=== PATIENT | female | born 1935 ===

== ENCOUNTER 2016-11-05 11:56 | Inpatient (IN) | payer MEDICARE ==
[2016-11-05 11:56] VITALS: BMI 20.5
[2016-11-05] MEDS ORDERED: Acetaminophen 650mg/20.3ml solution UD PO STA (12:16)
--- NOTE | 2016-11-05 12:28 | C.PDOC ---
History Of Present Illness Patient is a 80 y/o female who presents to the ED with a complaint of a headache that began yesterday. Patient states she also has HTN in which she took medication for today; BP 176/80 in house. Denies any other complaints at the time. Time Seen by Provider: 11/05/16 12:10 Chief Complaint (Nursing): High Blood Pressure History Per: Patient History/Exam Limitations: no limitations Onset/Duration Of Symptoms: Days (symptoms began yesterday. ) Current Symptoms Are (Timing): Still Present Associated Symptoms: Headache Recent travel outside of the [place]: No Past Medical History Reviewed: Historical Data, Nursing Documentation, Vital Signs Vital Signs: Last Vital Signs Temp 97.6 F 11/05/16 17:30 Pulse 72 11/05/16 17:30 Resp 20 11/05/16 17:30 BP 154/72 H 11/05/16 17:30 Pulse Ox 97 11/05/16 18:20 - Medical History PMH: HTN, Hypercholesterolemia, Peripheral Edema Denies: Chronic Kidney Disease Surgical History: No Surg Hx Family History: States: Unknown Family Hx - Social History Hx Alcohol Use: No Hx Substance Use: No - Immunization History Hx Tetanus Toxoid Vaccination: No Hx Influenza Vaccination: No Hx Pneumococcal Vaccination: No Review Of Systems Constitutional: Negative for: Fever, Chills Cardiovascular: Negative for: Chest Pain, Palpitations Respiratory: Negative for: Shortness of Breath Gastrointestinal: Negative for: Nausea, Vomiting, Diarrhea Neurological: Positive for: Headache Physical Exam - Physical Exam Appears: Well, Non-toxic Skin: Normal Color, Warm, Dry Head: Atraumatic, Normacephalic Oral Mucosa: Moist Chest: Symmetrical Cardiovascular: Rhythm Regular, No Murmur Respiratory: Normal Breath Sounds, No Rales, No Rhonchi, No Wheezing Gastrointestinal/Abdominal: Soft, No Tenderness Neurological/Psych: Oriented x3, Normal Speech, Normal Cognition ED Course And Treatment - Laboratory Results Result Diagrams: 11/05/16 12:30 11/05/16 12:30 ECG: Interpreted By Me, Viewed By Me ECG Rhythm: Sinus Rhythm ECG Interpretation: Normal Rate From EC O2 Sat by Pulse Oximetry: 100 (room air) Pulse Ox Interpretation: Normal Medical Decision Making Medical Decision Making: Plan: CT head, EKG, UA, and blood work ordered; Tylenol administered. CT Head Impression: Patchy chronic white matter ischemic change with focal white matter lucency in the high left parietal lobe, likely remote ischemic change. Less likely subacute white matter infarct. Please correlate clinically. No intracranial hemorrhage. No mass identified. 200: pt took asa today. discussed with dr saeed. accepts for obs for neuro eval. Disposition - Disposition Disposition: HOSPITALIZED Disposition Time: 02:00 Condition: STABLE - Clinical Impression Clinical Impression: Headache - Scribe Statement The provider has reviewed the documentation as recorded by the Scribe Zonia Magana All medical record entries made by the Scribe were at my direction and personally dictated by me. I have reviewed the chart and agree that the record accurately reflects my personal performance of the history, physical exam, medical decision making, and the department course for this patient. I have also personally directed, reviewed, and agree with the discharge instructions and disposition. Decision To Admit - Pt Status Changed To: Hospital Disposition Of: Observation - . Bed Request Type: Regular Admitting Physician: Dunia Ann Patient Diagnosis: Headache
[2016-11-05 12:33] LABS: BASO % 0.5 % (0.0-2.0); EOS # 0.2 K/uL (0.0-0.7); EOS % 3.1 % (0.0-4.0); HEMATOCRIT 33.2 % (34.0-47.0); LYMPH # 0.8 K/uL (1.0-4.3); LYMPH % 12.7 % (20.0-40.0); MEAN CELL VOLUME 94.7 fL (81.0-99.0); MEAN CORPUSCULAR HEMOGLOBIN 31.5 pg (27.0-31.0); MEAN CORPUSCULAR HGB CONC 33.3 g/dL (33.0-37.0); MEAN PLATELET VOLUME 8.5 fL (7.2-11.7); MONO # 0.3 K/uL (0.0-0.8); MONO % 5.5 % (0.0-10.0); RED CELL DISTRIBUTION WIDTH 12.7 % (11.5-14.5); WHITE BLOOD COUNT 6.3 K/uL (4.8-10.8)
[2016-11-05 12:45] LABS: ALB/GLOB RATIO 1.5 (1.0-2.1); ALKALINE PHOSPHATASE 62 U/L (38-126); ALT/SGPT 23 U/L (9-52); AST/SGOT 22 U/L (14-36); BILIRUBIN,TOTAL 0.6 mg/dL (0.2-1.3); BLOOD UREA NITROGEN 21 mg/dL (7-17); CALCIUM 8.9 mg/dl (8.6-10.4); CARBON DIOXIDE 26 mmol/L (22-30); CHLORIDE 96 mmol/L (98-107); GFR AFRICAN-AMERICAN > 60; GLUCOSE,RANDOM 122 mg/dL (65-105); POTASSIUM 4.1 mmol/L (3.6-5.2); SODIUM 136 mmol/L (132-148); TOTAL PROTEIN 6.6 g/dL (6.3-8.3)
[2016-11-05 13:49] LABS: RBC URINE 1 /hpf (0-3); URINE BACTERIA RARE (<OCC); URINE BILIRUBIN NEGATIVE (NEGATIVE); URINE BLOOD NEGATIVE (NEGATIVE); URINE COLOR Yellow (YELLOW); URINE GLUCOSE (UA) NORMAL (Normal); URINE KETONE NEGATIVE (NEGATIVE); URINE LEUKOCYTE ESTERASE NEG Leu/uL (Negative); URINE PROTEIN NEGATIVE (NEGATIVE); URINE UROBILINOGEN NORMAL mg/dL (0.2-1.0); WBC URINE < 1 /hpf (0-5)
--- NOTE | 2016-11-05 13:59 | CT ---
PROCEDURE: CT HEAD WITHOUT CONTRAST. HISTORY: mag[place]on COMPARISON: None available. TECHNIQUE: Axial computed tomography images were obtained through the head/brain without intravenous contrast. Radiation dose: Total exam DLP = 843.35 mGy-cm. This CT exam was performed using one or more of the following dose reduction techniques: Automated exposure control, adjustment of the mA and/or kV according to patient size, and/or use of iterative reconstruction technique. FINDINGS: HEMORRHAGE: No intracranial hemorrhage. BRAIN: No mass effect or edema. Minimal diffuse atrophy. Patchy periventricular and deep white matter lucency consistent with microvascular ischemic change. Focal left high parietal white matter lucency cephalad to the atrium of the left lateral ventricle, likely remote white matter infarct. Less likely subacute white matter infarct. No mass effect upon left lateral ventricle. No evidence of acute infarct. Please correlate clinically. VENTRICLES: Unremarkable. No hydrocephalus. CALVARIUM: Unremarkable. PARANASAL SINUSES: Unremarkable as visualized. No significant inflammatory changes. MASTOID AIR CELLS: Unremarkable as visualized. No inflammatory changes. OTHER FINDINGS: None. IMPRESSION: Patchy chronic white matter ischemic change with focal white matter lucency in the high left parietal lobe, likely remote ischemic change. Less likely subacute white matter infarct. Please correlate clinically. No intracranial hemorrhage. No mass identified.
--- NOTE | 2016-11-05 15:16 | CP.PCM.PN ---
Subjective - Date & Time of Evaluation Date of Evaluation: 11/05/16 Time of Evaluation: 15:15 - Subjective Subjective: H&P dictated #[id number] Objective - Vital Signs/Intake and Output Vital Signs (last 24 hours): Temp Pulse Resp BP Pulse Ox 98.4 F 68 15 175/76 H 100 11/05/16 12:02 11/05/16 13:33 11/05/16 13:33 11/05/16 13:33 11/05/16 14:24 - Medications Medications: Current Medications Atenolol (Tenormin) 100 mg PO DAILY [facility] Hydralazine HCl (Apresoline) 25 mg PO BID [facility] Hydrochlorothiazide (Microzide) 12.5 mg PO DAILY [facility] Losartan Potassium (Cozaar) 100 mg PO DAILY [facility] - Labs Labs: PT 11.7 SECONDS (9.7-12.2) 11/05/16 12:30 INR 1.0 11/05/16 12:30 APTT 50 SECONDS (21-34) H 11/05/16 12:30
--- NOTE | 2016-11-05 23:43 | HP ---
CHIEF COMPLAINT: Left-sided occipital headache and neck pain for the past 3 days. HISTORY OF PRESENT ILLNESS: Ms. Samson is a 80-year-old female with past medical history of hypertension, who has been following up with Dr. Nik Williamson came into the ED with complaints of left-sided occipital headache, which started about 3 days ago. As per the patient, she woke up with left-sided occipital headache and left-sided neck pain, which progressively getting worse. The pain worse when she turns to the left side, last night her pain was 10/10 and not able to sleep. Denies any dizziness. Denies any visual changes. Denies any nausea or vomiting. Denies any chest pain, shortness of breath or wheezing. Denies any urinary complaints. Denies any leg pains or leg cramps. Denies any other neurologic symptoms. Denies any generalized weakness. PAST MEDICAL HISTORY: As described hypertension. PAST SURGICAL HISTORY: Denies any past surgical history. FAMILY HISTORY: Diabetes in mother. Father from old age. PERSONAL HISTORY: She is with one daughter. SOCIAL HISTORY: Denies smoking, alcohol or drug abuse. ALLERGIES: SHE IS ALLERGIC TO ONE MEDICATION THAT SHE COULD NOT RECALL. HOME MEDICATIONS: Include hydralazine 25 mg p.o. b.i.d., valsartan and hydrochlorothiazide 160/12.5 one tab daily, atenolol 100 mg p.r.n. REVIEW OF SYSTEMS: As described in history of present illness. All other systems reviewed and were found to be negative. PHYSICAL EXAMINATION: GENERAL: An elderly female, lying in bed in no acute distress. VITAL SIGNS: Blood pressure 175/76, pulse 58, respirations 15, temperature 98.4 degrees Fahrenheit and O2 saturations 99% on room air. HEENT: Pupils equal, round and reacting to light and accommodation. Extraocular muscles are intact. No icterus. No pallor. No oral thrush. No pharyngeal congestion. NECK: Supple. Left-sided tenderness in the neck muscles noted. No JVD. CHEST: Moving equally bilaterally on respiration. CVS: S1 and S2 present, regular. LUNGS: Bilateral vesicular breath sounds. No wheezing. No rhonchi. ABDOMEN: Soft and nontender. Bowel sounds present. No guarding. No rigidity. No rebound tenderness noted. EXTREMITIES: No edema. Palpable peripheral pulses. TRACK SURFACING MACHINE OPERATOR: Alert, awake and oriented x3. Cranial nerves II through XII grossly intact. Power 5/5 in all extremities. Reflexes are 2 +. Gait is not tested. LABORATORY DATA: Her head CT done from ED shows patchy chronic white matter ischemic change with focal white matter lucency in the hilar, likely remote ischemic change, less likely subacute white matter infarct, no intracranial hemorrhage, no mass identified. EKG consistent with normal sinus rhythm at 66 beats per minute. WBC 6.3, hemoglobin 11.1, hematocrit 33.2 and platelets 196. PT 11.7, INR 1.0 and PTT 50. Sodium 136, potassium 4.1, chloride 96, bicarb 26, BUN 21, creatinine 1.0, glucose 122, calcium 8.9, total bilirubin 0.6, AST 22, ALT 23, alkaline phosphatase 62, troponin less 0.0120, total protein 6.6, albumin 4.0. UA negative. Chest x-ray is not done. ASSESSMENT: An elderly female with history of hypertension on multiple medications admitted with left occipital headache and left-sided neck pain for the past 3 days. In the emergency department, workup showed abnormal CT with questionable chronic versus subacute ischemic changes and the patient is being admitted for further observation. 1. Left occipital headache and neck pain probably musculoskeletal in nature in the view of her abnormal CT results cannot rule out cerebrovascular accident. 2. Abnormal CT results with chronic versus subacute ischemic changes. 3. Hypertension, uncontrolled. PLAN: The patient is being admitted to telemetry. We will do serial cardiac enzymes and serial EKGs. We will check echocardiogram. We will check carotid Doppler. We will check MRI of the brain. We will give aspirin 325 mg p.o. daily. We will check lipid profile, TSH, UA, hemoglobin A1c. Continue with her home medications of hydralazine 25 mg p.o. b.i.d., valsartan 160 mg daily, hydrochlorothiazide 12.5 mg daily, atenolol 100 mg p.o. daily. Will obtain neurology evaluation, Dr. Wilkinson do neuro checks. We will add further recommendation as her clinical course progresses. Dunia Ann MD
--- NOTE | 2016-11-06 07:33 | CP.PCM.CON ---
History of Present Illness - History of Present Illness History of Present Illness: CONSULT DICTATED POSSIBLE CERVICAL DISK Vs MUSCULAR SPRAIN OA/RA WORKUP PER ORDER - COLLAGEN VASUCLAR DISEASE Past Patient History - Past Medical History & Family History Past Medical History?: Yes - Past Social History Smoking Status: Never Smoked - CARDIAC Hx Hypercholesterolemia: Yes Hx Hypertension: Yes Hx Peripheral Edema: Yes - PULMONARY Hx Respiratory Disorders: No - NEUROLOGICAL Hx Neurological Disorder: No - HEENT Hx HEENT Problems: No - RENAL Hx Chronic Kidney Disease: No - ENDOCRINE/METABOLIC Hx Endocrine Disorders: No - HEMATOLOGICAL/ONCOLOGICAL Hx Blood Disorders: No - INTEGUMENTARY Hx Dermatological Problems: No - MUSCULOSKELETAL/RHEUMATOLOGICAL Hx Falls: No - GASTROINTESTINAL Hx Gastrointestinal Disorders: No - GENITOURINARY/GYNECOLOGICAL Hx Genitourinary Disorders: No - PSYCHIATRIC Hx Substance Use: No - SURGICAL HISTORY Hx Surgeries: Yes - ANESTHESIA Hx Anesthesia: Yes (Sedation) Hx Anesthesia Reactions: No Hx Malignant Hyperthermia: No Has any member of the family had a problem w/ anesthesia?: No Meds Allergies/Adverse Reactions: Allergies Allergy/AdvReac Type Severity Reaction Status Date / Time No Known Allergies Allergy Verified 02/01/15 09:25 - Medications Medications: Current Medications Aspirin (Aspirin) 325 mg PO DAILY [facility] Atenolol (Tenormin) 100 mg PO DAILY [facility] Enoxaparin Sodium (Lovenox) 40 mg SC DAILY [facility] Hydralazine HCl (Apresoline) 25 mg PO BID [facility] Last Admin: 11/05/16 19:00 Dose: 25 mg Hydrochlorothiazide (Microzide) 12.5 mg PO DAILY [facility] Last Admin: 11/05/16 16:08 Dose: 12.5 mg Losartan Potassium (Cozaar) 100 mg PO DAILY [facility] Last Admin: 11/05/16 16:08 Dose: 100 mg Results - Vital Signs Recent Vital Signs: Last Vital Signs Temp 98.2 F 11/06/16 00:00 Pulse 58 L 11/06/16 00:00 Resp 16 11/06/16 00:00 BP 170/78 H 11/06/16 00:00 Pulse Ox 99 11/06/16 00:00 - Labs Result Diagrams: 11/05/16 12:30 11/05/16 12:30 Labs: Laboratory Results - last 24 hr 11/05/16 19:19 Troponin I < 0.0120
[2016-11-06 07:46] LABS: RBC URINE < 1 /hpf (0-3); URINE BILIRUBIN NEGATIVE (NEGATIVE); URINE BLOOD NEGATIVE (NEGATIVE); URINE COLOR Yellow (YELLOW); URINE GLUCOSE (UA) NORMAL (Normal); URINE HYALINE CAST 0-2 /lpf (0-2); URINE KETONE NEGATIVE (NEGATIVE); URINE LEUKOCYTE ESTERASE NEG Leu/uL (Negative); URINE PROTEIN NEGATIVE (NEGATIVE); URINE UROBILINOGEN NORMAL mg/dL (0.2-1.0); WBC URINE 3 /hpf (0-5)
[2016-11-06 08:01] LABS: THYROID STIMULATING HORMONE 5.08 mIU/L (0.46-4.68); THYROID STIMULATING HORMONE 5.23 mIU/L (0.46-4.68)
[2016-11-06 10:01] LABS: FREE T4 1.29 ng/dL (0.78-2.19)
[2016-11-06] MEDS: Enoxaparin 40 mg Syringe SC SCH (11:53)
--- NOTE | 2016-11-06 12:38 | CARD ---
APPROVED REPORT EKG Measurement Heart [id number] <Conclusion> Normal sinus rhythm RSR' or QR pattern in V1 suggests right ventricular conduction delay Voltage criteria for left ventricular hypertrophy Abnormal ECG
--- NOTE | 2016-11-06 13:24 | CP.PCM.PN ---
Subjective - Date & Time of Evaluation Date of Evaluation: 11/06/16 Time of Evaluation: 13:00 - Subjective Subjective: Progress note dictated #[id number] Objective - Vital Signs/Intake and Output Vital Signs (last 24 hours): Temp Pulse Resp BP Pulse Ox 98.3 F 76 20 180/77 H 100 11/06/16 08:50 11/06/16 08:50 11/06/16 08:50 11/06/16 08:50 11/06/16 08:50 Intake and Output: 11/06/16 11/06/16 06:59 18:59 Intake Total 0 Balance 0 - Medications Medications: Current Medications Aspirin (Aspirin) 325 mg PO DAILY [facility] Last Admin: 11/06/16 11:53 Dose: 325 mg Atenolol (Tenormin) 100 mg PO DAILY [facility] Last Admin: 11/06/16 11:52 Dose: 100 mg Cyclobenzaprine HCl (Flexeril) 5 mg PO BID [facility] Enoxaparin Sodium (Lovenox) 40 mg SC DAILY [facility] Last Admin: 11/06/16 11:53 Dose: 40 mg Hydralazine HCl (Apresoline) 25 mg PO BID [facility] Last Admin: 11/06/16 11:52 Dose: 25 mg Hydrochlorothiazide (Microzide) 12.5 mg PO DAILY [facility] Last Admin: 11/06/16 11:51 Dose: 12.5 mg Ibuprofen (Motrin Tab) 400 mg PO Q8H PRN PRN Reason: Pain, moderate (4-7) Ketorolac Tromethamine (Toradol) 30 mg IVP STAT STA Stop: 11/06/16 13:20 Losartan Potassium (Cozaar) 100 mg PO DAILY [facility] Last Admin: 11/06/16 11:53 Dose: 100 mg - Labs Labs: PT 11.7 SECONDS (9.7-12.2) 11/05/16 12:30 INR 1.0 11/05/16 12:30 APTT 50 SECONDS (21-34) H 11/05/16 12:30
--- NOTE | 2016-11-06 14:56 | MRI ---
PROCEDURE: MR CERVICAL SPINE WITHOUT CONTRAST HISTORY: DISC PATHOLOGY COMPARISON: None available. TECHNIQUE: Multiecho multiplanar sequences were performed through the cervical spine without the use of intravenous contrast. FINDINGS: Normal lordotic curvature. Craniocervical junction unremarkable. Vertebral body heights preserved. Heterogeneous bone marrow signal seen . No evidence of destructive bony lesion. Normal cervical cord. No paraspinal abnormality. C2-C3: No disc herniation, spinal canal stenosis or neural foraminal narrowing. C3-C4: Small central disc bulge seen without evidence of significant spinal or neural foraminal narrowing. [id number] narrowing of the disc space. C4-C5: Severe narrowing of the disc is space. Moderate size osteophyte disc bulging complex associated with posterior ligament hypertrophy which resulting in mild spinal and neural foraminal narrowing. C5-C6: No disc herniation, spinal canal stenosis or neural foraminal narrowing. Moderate degenerative disc changes and narrowing of the disc space. C6-C7: No disc herniation, spinal canal stenosis or neural foraminal narrowing. C7-T1: No disc herniation, spinal canal stenosis or neural foraminal narrowing. OTHER FINDINGS: None. IMPRESSION: Moderate degenerative disc changes more prominent at C4-C5 and C5-C6. Small to moderate size osteophyte disc bulge complex at C4-C5 associated with posterior ligament hypertrophy which resulting in mild spinal and neural foraminal narrowing. No evidence of cord compression.
--- NOTE | 2016-11-06 15:02 | MRI ---
PROCEDURE: MRI BRAIN WITHOUT CONTRAST HISTORY: r/o cva COMPARISON: Comparison is made to previous CT dated 11/05/2016 TECHNIQUE: Multiplanar, multisequence MR images of the brain were obtained without intravenous contrast enhancement. FINDINGS: HEMORRHAGE: None DWI: No evidence of an acute or early subacute infarction. BRAIN PARENCHYMA: No mass effect or edema. Mild atrophy and mild white matter changes are noted suggestive but nonspecific for chronic microvascular ischemic disease. VENTRICLES: Unremarkable. No hydrocephalus. CRANIUM: Unremarkable. ORBITS: Grossly unremarkable. PARANASAL SINUSES/MASTOIDS: Clear VASCULAR SYSTEM: Skull base flow voids intact. OTHER FINDINGS: None. IMPRESSION: No evidence of acute or subacute infarctions. No evidence of intracranial hemorrhage intracranial collection mass effect or midline shift. Mild atrophy and mild white matter changes suggestive of chronic microvascular ischemic disease.
--- NOTE | 2016-11-06 18:35 | PN ---
DATE: 11/06/2016 SUBJECTIVE: The patient was seen and examined at bedside. The patient is still complaining of left-sided neck and occipital region pain. The pain medication given yesterday helped her a little bit and the pain came back. Denies any other new symptoms. PHYSICAL EXAMINATION GENERAL: Elderly female, lying in bed in no acute distress. VITAL SIGNS: Blood pressure 180/77, pulse 76, respirations 20, temperature 98.3 degrees Fahrenheit, and O2 saturations 100% on room air. HEENT: Pupils equal, round and reacting to light and accommodation. Extraocular muscles are intact. No icterus. No pallor. No oral thrush. No pharyngeal congestion. Tenderness at the left side in the occipital region and limited movement on the neck when moving to the left. NECK: Supple. No JVD. LUNGS: Bilateral vesicular breath sounds. No wheezing. No rhonchi. CVS: S1 and S2 present, regular. ABDOMEN: Soft and nontender. Bowel sounds present. No guarding. No rigidity. No rebound tenderness noted. CALL CENTER AGENT: Alert, awake and oriented x3. No focal deficits noted. EXTREMITIES: No edema. Palpable peripheral pulses. MEDICATIONS: Include aspirin 325 mg p.o. daily, atenolol 100 mg p.o. daily, hydralazine 25 mg p.o. b.i.d., hydrochlorothiazide 12.5 p.o. daily, losartan 100 mg p.o. daily. LABORATORY DATA: Labs done from today; ESR is 23. Hemoglobin A1c 5.8. Cardiac enzymes x3 negative. TSH is 5.23. Cholesterol 179, LDL 96, triglycerides 119, HDL 62. Urea negative. Rheumatoid arthritis panel negative. DAVI negative. Carotid Doppler pending results. Cervical neck MRI shows moderate degenerative disc changes, more prominent at C4-C5 and C5-C6 with [id number] size osteophyte disc bulge complex at C4-C5 associated with posterior ligament hypertrophy which resulting in mild spinal and neural foraminal narrowing. No evidence of cord compression. Brain MRI no evidence of acute or subacute infarctions. No evidence of intracranial hemorrhage., intracranial collection mass effect or midline effect. Mild atrophy and mild wide matter changes suggestive of chronic microvascular ischemic change. ASSESSMENT AND PLAN: An elderly female with uncontrolled hypertension, left-sided neck pain with abnormal cervical spine MRI, consistent with degenerative disc disease of the cervical region and moderate size osteophyte disc bulge complex at C4-C5 and posterior ligament hypertrophy. The patient still with persistent pain, give another dose of Toradol, start Flexeril 5 mg p.o. b.i.d. and Motrin 400 mg every 8 hours as needed. Continue with current blood pressure medication, adjust doses as needed. Neurology consult appreciated. If her blood pressure is controlled and the pain is better, we will plan discharging the patient home in a.m. Dunia Ann MD
--- NOTE | 2016-11-06 19:27 | CARD ---
APPROVED REPORT EXAM: Two-dimensional and M-mode echocardiogram with Doppler and color Doppler. Other Information Quality : GoodRhythm : INDICATION CVA/TIA Peripheral Edema RISK FACTORS Hypertension Hyperlipidemia 2D DIMENSIONS IVSd0.9 (0.7-1.1cm)Aortic Root (2D)3.0 (2.0-3.7cm) LVDd5.0 (3.9-5.9cm)LVOT Diameter1.8 (1.8-2.4cm) PWd0.8 (0.7-1.1cm)LVDs3.1 (2.5-4.0cm) FS (%) 39.2 %LVEF (%)69.5 (>50%) M-Mode DIMENSIONS RVDd2.82 (2.1-3.2cm)Left Atrium (MM)3.64 (2.5-4.0cm) IVSd0.58 (0.7-1.1cm)Aortic Root2.61 (2.2-3.7cm) LVDd5.59 (4.0-5.6cm)Aortic Cusp Exc.1.79 (1.5-2.0cm) PWd0.64 (0.7-1.1cm)FS (%) 41 % LVDs3.28 (2.0-3.8cm)LVEF (%)72 (>50%) Aortic Valve AI P 1/2 [id number] Mitral Valve MV E Wdnjekxl737.1cm/sMV A Ufvfkfve337.1cm/sE/A ratio0.8 TDI E/Lateral E'0.0E/Medial E'0.0 Tricuspid Valve TR Peak [id number]/sTR Peak Gr.[id number] LEFT VENTRICLE The left ventricle is normal size. There is normal left ventricular wall thickness. Left ventricle systolic function is normal. The Ejection Fraction is 65-70%. There is normal LV segmental wall motion. Transmitral Doppler flow pattern is Grade I-abnormal relaxation pattern. There is no ventricular septal defect visualized. RIGHT VENTRICLE The right ventricle is normal size. The right ventricular systolic function is normal. ATRIA The left atrium is moderately dilated. The right atrium is moderately dilated. AORTIC VALVE The aortic valve is mildly sclerotic. The aortic valve is tri-cuspid. There is mild to moderate aortic regurgitation. There is no aortic valvular stenosis. MITRAL VALVE Mitral annular calcification is mild. There is no evidence of mitral valve prolapse. Mitral regurgitation is moderate. TRICUSPID VALVE The tricuspid valve is normal in structure. There is moderate to severe tricuspid regurgitation. Right ventricular systolic pressure is estimated at greater than 60 mmHg. There is severe pulmonary hypertension. PULMONIC VALVE The pulmonic valve is not well visualized. There is mild pulmonic valvular regurgitation. GREAT VESSELS The aortic root is normal in size. The IVC is normal in size and collapses >50% with inspiration. PERICARDIAL EFFUSION There is a trace circumferential pericardial effusion. <Conclusion> Left ventricle systolic function is normal. The Ejection Fraction is 65-70%. Transmitral Doppler flow pattern is Grade I-abnormal relaxation pattern. There is mild to moderate aortic regurgitation. Mitral regurgitation is moderate. There is severe pulmonary hypertension. There is a trace circumferential pericardial effusion.
--- NOTE | 2016-11-07 05:16 | CON ---
ATTENDING PHYSICIAN: Dunia Ann MD ROOM NUMBER: [id number], bed A. REASON FOR CONSULTATION: Headache. CHIEF COMPLAINT: The patient was brought into [facility] with a history of headache as per the documentation. From neurological point of view, I was called into evaluate her for further management. HISTORY OF PRESENT ILLNESS: Ms. Mairely aSmson is a 80-year-old normally built, right-handed female presenting with apparently the neck pain on both side of her neck for the last 2 to 3 days. Initially, the pain was about 10/10. Today, the pain was somewhat subsided to 5/10. The pain is not radiating on either side of the neck. No association with dizziness. No association with headache, visual or bulbar dysfunction. No history of bowel or bladder incontinence. No similar episodes happened in the past. PAST MEDICAL HISTORY: Hypertension, dyslipidemia, and peripheral edema. PERSONAL HISTORY: Denies smoking or alcohol use. REVIEW OF SYSTEMS: A 16-point system being reviewed. From neuro, the patient had acute neck pain. MEDICATIONS: Hydralazine, aspirin, losartan, cyclobenzaprine, Lovenox, hydrochlorothiazide, ibuprofen, and atenolol. PHYSICAL EXAMINATION: VITAL SIGNS: Blood pressure 170/78, mean arterial pressure of 108, respiratory rate 16, temperature 98.2, and pulse rate 58. NECK: Supple. No carotid bruits. HEART: Showed irregular heart rate. CHEST: Fair air entry. EXTREMITIES: No edema in leg. However, extremities are swollen MP and IP joints. BACK: Examination of the spine showed cervical spinal tenderness and spasm over both trapezius muscle groups. NEUROLOGICAL: MENTAL STATUS EXAMINATION: She is awake, alert, and oriented to person, place, and time. Speech is clear. Naming, repetition, fluency, and comprehension all within normal. CRANIAL NERVE EXAMINATION: Visual field intact. Pupils reactive to light. Extraocular movement normal. No nystagmus. No facial sensory deficit. No facial asymmetry. Hearing is normal. Tongue is midline. Good gag. MOTOR EXAMINATION: An outstretched hand with eyes closed. No tremor noted. Deep tendon reflexes; biceps, brachialis 2+ on either side. Plantars are downgoing. SENSORY EXAMINATION: No dermatomal sensory loss. COORDINATION: Sgrmlj-lgqe-bteejy test is intact. GAIT: Normal. LABORATORY DATA: Her workup CT of the head reported as negative. EKG; normal sinus rhythm. Blood workup; WBC 6.3, hemoglobin 11.1, hematocrit 33.2, and platelets 196. PT 11.7, INR 1.0, and PTT 50. Sodium 136, potassium 4.1, chloride 96, BUN 21, creatinine 1.0, and random glucose 122. CONCLUSION: The patient has been presenting with neck pain. On examination showed probable cervical disk disease without any neurological long track signs or radicular symptoms noted. The current examination does not show any upper motor signs. RECOMMENDATIONS: 1. MRI of the cervical spine and blood workup for vasculitis because the patient showed some rheumatoid arthritis findings in the hands and the feet. 2. Continue the present management for the pain. The patient is recommended to have MRI of the cervical spine. The patient may be benefitted of doing a nerve conduction study, which can be done as outpatient. 3. The patient's condition has been well discussed with her. The patient will be followed closely while she is in the hospital. Sammy Wilkinson MD MTDD
[2016-11-07 07:01] LABS: BASO % 0.9 % (0.0-2.0); EOS # 0.3 K/uL (0.0-0.7); EOS % 5.3 % (0.0-4.0); HEMATOCRIT 32.1 % (34.0-47.0); LYMPH # 1.2 K/uL (1.0-4.3); LYMPH % 21.8 % (20.0-40.0); MEAN CELL VOLUME 94.3 fL (81.0-99.0); MEAN CORPUSCULAR HEMOGLOBIN 32.6 pg (27.0-31.0); MEAN CORPUSCULAR HGB CONC 34.6 g/dL (33.0-37.0); MONO # 0.5 K/uL (0.0-0.8); MONO % 8.6 % (0.0-10.0); NRBC % 0.1 % (0.0-2.0); RED CELL DISTRIBUTION WIDTH 12.8 % (11.5-14.5); WHITE BLOOD COUNT 5.3 K/uL (4.8-10.8)
[2016-11-07 07:18] LABS: POTASSIUM 4.2 mmol/L (3.6-5.2)
[2016-11-07 07:20] LABS: BILIRUBIN,TOTAL 0.5 mg/dL (0.2-1.3)
[2016-11-07 07:21] LABS: ALB/GLOB RATIO 1.6 (1.0-2.1); CALCIUM 8.4 mg/dl (8.6-10.4); TOTAL PROTEIN 6.1 g/dL (6.3-8.3)
--- NOTE | 2016-11-07 08:43 | PN ---
DATE: NEUROLOGICAL PROBLEM: Neck pain. Possible cervical disk disease. PHYSICAL EXAMINATION: VITAL SIGNS: Blood pressure 194/85, mean arterial pressure of 121, respiratory rate 16, temperature 97.5. NECK: The patient's neck pain is somewhat improved. The rest of the examination is unchanged. LABORATORY DATA: Her workup; WBC 5.3, hemoglobin 11.1, hematocrit 32.1, platelets 181. Chemistry; sodium 134, potassium 4.2, chloride 99, bicarbonate 23, BUN 32, creatinine 1.5, calcium 8.4, TSH of 5.23, cholesterol 179, LDL 96, HDL 62. RPR nonreactive. Rheumatoid panel negative. DAVI results are negative. RECOMMENDATIONS: Neurologically, the patient is stable. If medically stable and controlled with blood pressure and chronic renal dysfunction, the patient can be discharged and should have followup visit with me as an outpatient for her cervical disk disease to rule in or rule out cervical radiculopathy. The patient can be benefited on physical therapy as well. The patient's condition has been well discussed. The patient will be followed while she is in the hospital. Sammy Wilkinson MD
[2016-11-07] MEDS: Enoxaparin 40 mg Syringe SC SCH (09:20)
--- NOTE | 2016-11-07 11:27 | CP.PCM.PN ---
Subjective - Date & Time of Evaluation Date of Evaluation: 11/07/16 Time of Evaluation: 11:00 - Subjective Subjective: Progress note dictated #[id number] Objective - Vital Signs/Intake and Output Vital Signs (last 24 hours): Temp Pulse Resp BP Pulse Ox 97.9 F 56 L 20 191/71 H 98 11/07/16 07:55 11/07/16 07:55 11/07/16 07:55 11/07/16 07:55 11/07/16 07:55 - Medications Medications: Current Medications Aspirin (Aspirin) 325 mg PO DAILY [facility] Last Admin: 11/07/16 09:19 Dose: 325 mg Atenolol (Tenormin) 100 mg PO DAILY [facility] Last Admin: 11/07/16 09:19 Dose: 100 mg Cyclobenzaprine HCl (Flexeril) 5 mg PO BID [facility] Last Admin: 11/07/16 09:19 Dose: 5 mg Enoxaparin Sodium (Lovenox) 40 mg SC DAILY [facility] Last Admin: 11/07/16 09:20 Dose: 40 mg Hydralazine HCl (Apresoline) 50 mg PO BID [facility] Hydrochlorothiazide (Hydrodiuril) 25 mg PO DAILY [facility] Ibuprofen (Motrin Tab) 400 mg PO Q8H PRN PRN Reason: Pain, moderate (4-7) Losartan Potassium (Cozaar) 100 mg PO DAILY [facility] Last Admin: 11/07/16 09:18 Dose: 100 mg - Labs Labs: 11/07/16 06:45 11/07/16 06:45 PT 11.7 SECONDS (9.7-12.2) 11/05/16 12:30 INR 1.0 11/05/16 12:30 APTT 50 SECONDS (21-34) H 11/05/16 12:30
--- NOTE | 2016-11-07 14:46 | VASCLAB ---
PROCEDURE: HISTORY: Headaches, r/o cva COMPARISON: None available. TECHNIQUE: Grayscale and duplex Doppler evaluation of the cervical carotid and vertebral arteries were performed. The common carotid, carotid bifurcations and cervical Internal Carotid Artery (ICA) and proximal External Carotid Artery (ECA) were evaluated. The vertebral arteries were evaluated for gross patency and flow direction. Report prepared by Josue Tierney, BS, RVT FINDINGS: RIGHT CAROTID ARTERIES: 1. Common Carotid Artery: No significant focal plaque formation of the right common carotid artery. Maximum Peak Systolic velocity: 62 cm/sec: End-diastolic velocity 10 cm/sec. 2. Carotid Bifurcation: plaque formation. Maximum Peak Systolic velocity: 49 cm/sec: End-diastolic velocity 9 cm/sec. 3. Internal Carotid Artery: Plaque description: Minimal calcific 3.1. Proximal Segment: Peak systolic velocity 80 cm/sec: End-diastolic velocity 16 cm/sec - % stenosis 0-15% 3.2. Middle Segment: Peak systolic velocity 96 cm/sec: End-diastolic velocity 26 cm/sec - % stenosis 0-15% 3.3. Distal Segment: Peak systolic velocity 106 cm/sec: End-diastolic velocity 24 cm/sec - % stenosis 0-15% 4. External Carotid Artery: No significant focal plaque formation. Peak systolic velocity 64 cm/sec 5. ICA/CCA Ratio: 2.0 LEFT CAROTID ARTERIES: 1. Common Carotid Artery: No significant focal plaque formation of the left common carotid artery. Maximum Peak Systolic velocity: 98 cm/sec: End-diastolic velocity 16 cm/sec. 2. Carotid Bifurcation: plaque formation. Maximum Peak Systolic velocity: 63 cm/sec: End-diastolic velocity 8 cm/sec. 3. Internal Carotid Artery: Plaque description: Heterogeneous 3.1. Proximal Segment: Peak systolic velocity 97 cm/sec: End-diastolic velocity 19 cm/sec - % stenosis 0-15% 3.2. Middle Segment: Peak systolic velocity 90 cm/sec: End-diastolic velocity 27 cm/sec - % stenosis 0-15% 3.3. Distal Segment: Peak systolic velocity 45 cm/sec: End-diastolic velocity 12 cm/sec - % stenosis 0-15% 4. External Carotid Artery: No significant focal plaque formation. Peak systolic velocity 74 cm/sec 5. ICA/CCA Ratio: 1.3 VERTEBRAL ARTERIES: 1. Right Vertebral Artery: The right vertebral artery flow direction is antegrade. 2. Left Vertebral Artery: The left vertebral artery flow direction is antegrade. OTHER FINDINGS: 1. Right Brachial Blood pressure: 204 mmHg. 2. Left Brachial Blood pressure: 200 mmHg. IMPRESSION: RIGHT: Duplex scan does not suggest hemodynamically significant stenosis of the right extracranial carotid arteries. LEFT: Duplex scan does not suggest hemodynamically significant stenosis of the left extracranial carotid arteries.
[2016-11-07] MEDS: Sodium Chloride 0.45% 1,000 ML IV SCH (18:04)
--- NOTE | 2016-11-08 01:33 | PN ---
SUBJECTIVE: The patient was seen and examined at bedside. The patient is still complaining of left-sided neck pain, which is better than yesterday, but claims that IV medication is helping her. Denies any other new complaints. PHYSICAL EXAMINATION GENERAL: Elderly female, lying in bed, in no acute distress. VITAL SIGNS: Blood pressure 194/85, pulse 86, respirations 20, temperature 97.5 degrees Fahrenheit, O2 saturation is 99% on room air. HEENT: Pupils equal, round and reacting to light and accommodation. Extraocular muscles intact. No icterus. No pallor. No oral thrush. No pharyngeal congestion. NECK: Supple. No JVD. LUNGS: Bilateral vesicular breath sounds. No wheezing. No rhonchi. CARDIOVASCULAR: S1 and S2 present, regular. ABDOMEN: Soft, nontender. Bowel sounds present. No guarding. No rigidity. No rebound tenderness noted. CENTRAL NERVOUS SYSTEM: Alert, awake, oriented x3. No focal deficits noted. EXTREMITIES: No edema. Palpable peripheral pulses. MEDICATIONS: Include aspirin 325 mg p.o. daily, atenolol 100 mg daily, Flexeril 5 mg p.o. b.i.d., Lovenox 40 mg daily, hydralazine 50 mg p.o. b.i.d., hydrochlorothiazide 25 mg daily, ibuprofen as needed, Cozaar 100 mg daily. LABORATORY DATA: Labs from this morning; WBC 5.3, hemoglobin 11.1, hematocrit 32.1, platelets 181. Sodium 134, potassium 4.2, chloride 99, bicarb 23, BUN 32, creatinine 1.5, glucose 86, calcium 8.4, hemoglobin A1c 5.8, total protein 6.1, albumin 3.7, triglycerides 119, cholesterol 179, LDL 96. TSH is 5.23. UA negative. RPR nonreactive. Carotid Doppler negative. ASSESSMENT AND PLAN: An elderly female with hypertension, admitted for left-sided neck and occipital pain, probably secondary to muscular strain from cervical disc disease, abnormal CT of the brain with normal MRI results, uncontrolled hypertension and elevated BUN and creatinine, questionable etiology. The patient's blood pressure is still uncontrolled. We will increase hydralazine to 50 mg p.o. b.i.d., increase hydrochlorothiazide to 25 mg p.o. daily. We will monitor blood pressure closely. We will start half-normal saline. We will repeat labs in the a.m. We will add further recommendation as her clinical course progresses. Dunia Ann MD
[2016-11-08] MEDS: Sodium Chloride 0.45% 1,000 ML IV SCH (05:09)
[2016-11-08 07:19] LABS: POTASSIUM 4.3 mmol/L (3.6-5.2)
[2016-11-08 07:22] LABS: ALB/GLOB RATIO 1.5 (1.0-2.1); BILIRUBIN,TOTAL 0.6 mg/dL (0.2-1.3); TOTAL PROTEIN 6.2 g/dL (6.3-8.3)
[2016-11-08 07:23] LABS: CALCIUM 8.6 mg/dl (8.6-10.4)
[2016-11-08 07:56] VITALS: RESP 19; TEMP 98.5; O2SAT 96
[2016-11-08] MEDS: Enoxaparin 40 mg Syringe SC SCH (09:39)
--- NOTE | 2016-11-08 10:24 | CP.PCM.PN ---
Subjective - Date & Time of Evaluation Date of Evaluation: 11/08/16 Time of Evaluation: 10:20 - Subjective Subjective: Discharge summary dictated #[id number] Objective - Vital Signs/Intake and Output Vital Signs (last 24 hours): Temp Pulse Resp BP Pulse Ox 98.5 F 66 19 182/74 H 96 11/08/16 07:56 11/08/16 07:56 11/08/16 07:56 11/08/16 07:56 11/08/16 07:56 Intake and Output: 11/08/16 11/08/16 06:59 18:59 Intake Total 1920 Balance 1920 - Medications Medications: Current Medications Aspirin (Aspirin) 325 mg PO DAILY [facility] Last Admin: 11/08/16 09:39 Dose: 325 mg Atenolol (Tenormin) 100 mg PO DAILY [facility] Last Admin: 11/08/16 09:39 Dose: 100 mg Cyclobenzaprine HCl (Flexeril) 5 mg PO BID [facility] Last Admin: 11/08/16 09:40 Dose: 5 mg Enoxaparin Sodium (Lovenox) 40 mg SC DAILY [facility] Last Admin: 11/08/16 09:39 Dose: 40 mg Hydralazine HCl (Apresoline) 50 mg PO BID [facility] Last Admin: 11/08/16 09:38 Dose: 50 mg Hydrochlorothiazide (Hydrodiuril) 25 mg PO DAILY [facility] Last Admin: 11/08/16 09:39 Dose: 25 mg Sodium Chloride (Sodium Chloride 0.45%) 1,000 mls @ 100 mls/hr IV .Q10H [facility] Last Admin: 11/08/16 05:09 Dose: 100 mls/hr Ibuprofen (Motrin Tab) 400 mg PO Q8H PRN PRN Reason: Pain, moderate (4-7) Losartan Potassium (Cozaar) 100 mg PO DAILY [facility] Last Admin: 11/07/16 09:18 Dose: 100 mg - Labs Labs: 11/08/16 06:48 PT 11.7 SECONDS (9.7-12.2) 11/05/16 12:30 INR 1.0 11/05/16 12:30 APTT 50 SECONDS (21-34) H 11/05/16 12:30
[2016-11-08 11:30] VITALS: BP 163/77; PULSE 64
--- NOTE | 2016-11-09 02:39 | DS ---
DISCHARGE DIAGNOSES: Uncontrolled hypertension, left occipital pain, possible musculoskeletal stream and degenerative joint disease, hypothyroidism, status post acute kidney injury. HISTORY OF PRESENT ILLNESS: The patient is a 80-year-old female with past medical history of hypertension, hypothyroidism, who has been following up with Dr. Nik Williamson, came in with complaints of left-sided occipital region pain, getting worse upon moving to the left side. In the ED, the patient was evaluated, found to be having abnormal CT head and the patient is being admitted for further evaluation. REVIEW OF SYSTEMS: Today, the patient is feeling much better. Denies any headache. Neck pain is much better, but still there. Denies any nausea, vomiting. Denies any other neurologic symptoms. All other systems reviewed and were found to be negative. PHYSICAL EXAMINATION: GENERAL: Elderly female, lying in bed, in no acute distress. VITAL SIGNS: Blood pressure 162/77, pulse 64, respirations 20, temperature 98.5 degree Fahrenheit, O2 saturation is 96% on room air. HEENT: Pupils equal and reacting to light and accommodation. Extraocular muscles intact. No icterus. No pallor. No oral thrush. No pharyngeal congestion. NECK: Supple. No JVD. No thyromegaly. CHEST: Moving equally bilaterally on respiration. LUNGS: Bilateral vesicular breath sounds. No wheezing. No rhonchi. CARDIOVASCULAR: S1 and S2 present, regular. ABDOMEN: Soft, nontender. Bowel sounds present. No guarding. No rigidity. No rebound tenderness noted. CENTRAL NERVOUS SYSTEM: Alert, awake and oriented x3. No focal deficits noted. EXTREMITIES: No edema. LABORATORY DATA: Labs from this morning, WBC 5.3, hemoglobin 11.1, hematocrit 32.1 and platelets 181. Sodium 136; potassium 4.3; chloride 102; bicarbonate 25; BUN 26, creatinine 1.2, yesterday BUN 32, creatinine 1.5. Other LFTs within normal limits. TSH 5.23. Cholesterol 179. LDL 96, HDL 62. UA negative. RPR negative. DAVI negative. Rheumatoid arthritis panel negative. MRI of the brain negative. Cervical spine MRI shows moderate degenerative disc changes, more prominent at C4-C5 and C5-C6, [id number] size osteophyte disc bulge complex at C4-C5, associated with posterior ligament hypertrophy with resulting mild spinal and foraminal narrowing. Carotid Doppler negative. Echocardiogram normal. EF at 65%-70%, [id number] AR, mitral regurgitation moderate, severe pulmonary hypertension, trace circumferential pericardial effusion. HOSPITAL COURSE: The patient was admitted to telemetry. The patient had neurological checks, started on aspirin, underwent MRI of the brain which was negative for any acute or subacute stroke. For neck pain, the patient received pain medication and muscle relaxants. The patient was evaluated by neurology, underwent cervical spine MRI which is consistent with degenerative joint disease and osteophyte formation. With the pain medication and muscle relaxants, the patient's symptoms slightly improved. The patient's blood pressure remained uncontrolled over the past 2 days, the patient's medications were adjusted. Her blood pressure is improving on the current regimen. The patient was evaluated by neurology, recommended further neurologic workup as outpatient. Her BUN and creatinine increased to 1.5 yesterday, questionable etiology, maybe secondary to dehydration and multiple pain medication doses. The patient was given IV fluids with which her creatinine improved to 1.2. As the patient is otherwise hemodynamically stable and the patient is anxious to be discharged, willing to follow up as outpatient, the patient is being discharged and advised the patient to follow up with PMD and follow up with nephrology as outpatient. CONDITION UPON DISCHARGE: The patient is alert, awake, oriented x3, hemodynamically stable. DISCHARGE INSTRUCTIONS: Follow up with PMD, follow up with nephrology, follow up with neurology. DISCHARGE DIET: Heart healthy diet. ACTIVITY: As tolerated. Dunia Ann MD
== END 2016-11-08 14:32 | disposition home or self-care (01) | DRG 552 ==
LOC: C.ER 11:56 → INTOOBSV 14:13 → C.9E 14:13 → C.3T 15:57 → C.6T 11-06 08:49 → OBSVTOIN 11-07 17:42 → INTOOBSV 11-07 17:42
PROVIDERS: ADMIT Internal Medicine; ATTEND Internal Medicine
DX: M50.321 Other cervical disc degeneration at C4-C5 level (principal); M50.322 Other cervical disc degeneration at C5-C6 level; M25.78 Osteophyte, vertebrae; M06.9 Rheumatoid arthritis, unspecified; I10 Essential (primary) hypertension; E03.9 Hypothyroidism, unspecified; E78.5 Hyperlipidemia, unspecified

== ENCOUNTER 2017-04-11 21:04 | Emergency (ER) | payer MEDICARE ==
[2017-04-11 21:04] VITALS: BMI 20.5
--- NOTE | 2017-04-11 21:58 | C.PDOC ---
History Of Present Illness The patient presents to the ED for evaluation of elevated blood pressure. Patient states she felt hot all over and found her blood pressure to be high at home. She denies chest pain, palpitations, shortness of breath, and vision change. Time Seen by Provider: 04/11/17 21:57 Chief Complaint (Nursing): High Blood Pressure History Per: Patient History/Exam Limitations: no limitations Onset/Duration Of Symptoms: Hrs Current Symptoms Are (Timing): Still Present Associated Symptoms: denies: Chest Pain, Blurred Vision Severity: None Pain Scale Rating Of: 0 Exacerbating Factor(s): Pos: None Recent travel outside of the [place]: No Additional History Per: Patient Past Medical History Reviewed: Historical Data, Nursing Documentation, Vital Signs Vital Signs: Last Vital Signs Temp 98.5 F 04/11/17 22:38 Pulse 68 04/11/17 22:38 Resp 16 04/11/17 22:38 BP 174/65 H 04/11/17 22:38 Pulse Ox 97 04/11/17 22:59 - Medical History PMH: HTN, Hypercholesterolemia, Hypothyroidism, Peripheral Edema Denies: Chronic Kidney Disease Surgical History: No Surg Hx Family History: States: Unknown Family Hx - Social History Hx Alcohol Use: No Hx Substance Use: No - Immunization History Hx Tetanus Toxoid Vaccination: No Hx Influenza Vaccination: No Hx Pneumococcal Vaccination: No Review Of Systems Constitutional: Negative for: Fever, Chills Cardiovascular: Positive for: Other (elevated blood pressure ). Negative for: Chest Pain, Palpitations Respiratory: Negative for: Cough, Shortness of Breath Gastrointestinal: Negative for: Nausea, Vomiting, Diarrhea Skin: Negative for: Rash, Lesions, Jaundice, Bruising Neurological: Negative for: Weakness, Numbness Psych: Positive for: Anxiety Physical Exam - Physical Exam Appears: Non-toxic, No Acute Distress Skin: Warm, Dry Head: Normacephalic Eye(s): bilateral: Normal Inspection Oral Mucosa: Moist Neck: Supple Chest: Symmetrical, No Deformity, No Tenderness Cardiovascular: Rhythm Regular, No Murmur Respiratory: No Rales, No Rhonchi, No Wheezing Gastrointestinal/Abdominal: Soft, No Tenderness, No Distention Back: Normal Inspection Extremity: Normal ROM, Capillary Refill (less than 2 seconds ) Extremity: Bilateral: Atraumatic Pulses: Left Dorsalis Pedis: Normal, Right Dorsalis Pedis: Normal Neurological/Psych: Oriented x3 Gait: Steady ED Course And Treatment - Laboratory Results Result Diagrams: 04/11/17 22:54 04/11/17 22:54 ECG: Interpreted By Me, Viewed By Me ECG Rhythm: Sinus Rhythm (70), Nonspecific Changes (lvh) O2 Sat by Pulse Oximetry: 97 (on RA ) Pulse Ox Interpretation: Normal - Radiology CXR: Interpreted by Me, Viewed By Me CXR Interpretation: No: Infiltrates, Fracture, Pnemothorax Progress Note: Bloodwork, urinalysis, CXR and EKG ordered and reviewed. Reevaluation Time: 23:10 Reassessment Condition: Improved Disposition Counseled Patient/Family Regarding: Studies Performed, Diagnosis, Need For Followup - Disposition Referrals: Nik Williamson MD [Medical Doctor] - Disposition: HOME/ ROUTINE Disposition Time: 21:58 Condition: FAIR Additional Instructions: Please return if symptoms recur Prescriptions: Oseltamivir Phosphate [Tamiflu] 75 mg PO BID #10 capsule Instructions: Hypertension (DC) Forms: [employer] ([place]izean) - Clinical Impression Clinical Impression: Hypertension - Scribe Statement The provider has reviewed the documentation as recorded by the Scribe (Olive Marquis) Provider Attestation: All medical record entries made by the Scribe were at my direction and personally dictated by me. I have reviewed the chart and agree that the record accurately reflects my personal performance of the history, physical exam, medical decision making, and the department course for this patient. I have also personally directed, reviewed, and agree with the discharge instructions and disposition.
[2017-04-11 22:57] LABS: BASO % 0.6 % (0.0-2.0); EOS # 0.2 K/uL (0.0-0.7); EOS % 2.5 % (0.0-4.0); HEMOGLOBIN 11.1 g/dL (11.0-16.0); LYMPH # 1.5 K/uL (1.0-4.3); LYMPH % 22.2 % (20.0-40.0); MEAN CELL VOLUME 93.1 fL (81.0-99.0); MEAN CORPUSCULAR HEMOGLOBIN 31.2 pg (27.0-31.0); MEAN CORPUSCULAR HGB CONC 33.5 g/dL (33.0-37.0); MEAN PLATELET VOLUME 8.2 fL (7.2-11.7); MONO # 0.5 K/uL (0.0-0.8); MONO % 7.3 % (0.0-10.0); NEUT # 4.5 K/uL (1.8-7.0); NEUT % 67.4 % (50.0-75.0); RBC 3.57 Mil/uL (3.80-5.20); RED CELL DISTRIBUTION WIDTH 12.4 % (11.5-14.5); WHITE BLOOD COUNT 6.7 K/uL (4.8-10.8)
[2017-04-11 23:00] LABS: SQUAMOUS EPITHIAL < 1 /hpf (0-5); URINE BACTERIA RARE (<OCC); URINE BILIRUBIN NEGATIVE (NEGATIVE); URINE BLOOD NEGATIVE (NEGATIVE); URINE CLARITY Clear (Clear); URINE GLUCOSE (UA) NORMAL (Normal); URINE LEUKOCYTE ESTERASE NEG Leu/uL (Negative); URINE NITRATE NEGATIVE (NEGATIVE); URINE PROTEIN NEGATIVE (NEGATIVE); URINE UROBILINOGEN NORMAL mg/dL (0.2-1.0)
[2017-04-11 23:03] LABS: URINE COLOR YELLOW (YELLOW)
[2017-04-11 23:08] LABS: VENOUS BLOOD GAS BASE EXCESS 0.6 mmol/L (0.0-2.0); VENOUS BLOOD GAS PCO2 36 mmHg (40-60); VENOUS BLOOD GAS PO2 80 mm/Hg (30-55); VENOUS BLOOD PH 7.44 (7.32-7.43)
[2017-04-11 23:09] LABS: ALB/GLOB RATIO 1.4 (1.0-2.1); ALBUMIN 4.2 g/dL (3.5-5.0); ALT/SGPT 31 U/L (9-52); AST/SGOT 30 U/L (14-36); BLOOD UREA NITROGEN 17 mg/dL (7-17); CALCIUM 8.9 mg/dl (8.6-10.4); GFR AFRICAN-AMERICAN > 60; GFR NON-AFRICAN AMERICAN > 60
[2017-04-11 23:49] VITALS: BP 170/65; PULSE 64; RESP 20; TEMP 98.2; O2SAT 99
--- NOTE | 2017-04-12 08:59 | RAD ---
Chest x-ray single frontal view History: Shortness of breath. Comparison: 02/01/2015 Findings: Biapical pleural thickening with upper lobe granulomatous changes. Prominent diffuse increased interstitial lung markings. Scattered nodular densities in the lower lung zones bilaterally. Somewhat confluent nodular density at the left lung base. Correlation with lateral view may be helpful. Clinical correlation. Tortuous aorta. Calcification at the aortic knob. Mild cardiomegaly. Degenerative changes in the spine and shoulders. Foreshortening of the distal right clavicle. Impression: Biapical pleural thickening with upper lobe granulomatous changes. Prominent diffuse increased interstitial lung markings. Scattered nodular densities in the lower lung zones bilaterally. Somewhat confluent nodular density at the left lung base. Correlation with lateral view may be helpful. Clinical correlation. Tortuous aorta. Calcification at the aortic knob. Mild cardiomegaly
== END 2017-04-11 23:49 | disposition home or self-care (01) ==
LOC: C.ER 21:04
DX: I10 Essential (primary) hypertension (principal); E78.00 Pure hypercholesterolemia, unspecified; E03.9 Hypothyroidism, unspecified

== ENCOUNTER 2018-07-10 08:17 | Outpatient (CLI) | payer MEDICARE | END 2018-07-10 08:18 | disposition home or self-care (01) | LOC: C.LAB 08:17 ==